=== PATIENT | female | born 1990 | race Caucasian/White ===

== ENCOUNTER 2021-05-11 17:23 | Emergency (ER) | payer BC ==
[2021-05-11] MEDS ORDERED: Lidocaine 1% (PF) 30 ML VIAL ONE (17:46)
[2021-05-11] MEDS ORDERED: Bacitracin 1 PK ONE ×2 (17:51→18:11)
== END 2021-05-11 18:17 | disposition home or self-care (01) ==
LOC: BURERS 17:23
DX: S61.412A Laceration without foreign body of left hand, initial encounter (principal); W26.0XXA Contact with knife, initial encounter
CPT/HCPCS: 12001; J2001